=== PATIENT | female | born 1980 | race Caucasian/White ===

== ENCOUNTER 2016-09-20 15:00 | Emergency (ER) | payer OTHER ==
[~2016-09-20] VITALS: Ht 160 cm; Wt 111.0 kg
[~2016-09-20 15:00] MED LIST: ASPIR-LOW81 MG PO; ASPIRIN81 M2 PO; BENTYL10 MG PO; CALCI-CHEW500 MG PO; IRON325 M1 PO; IRON325 MG PO; LO-DOSE ASPIRIN81 M2 PO; MOBIC7.5 MG PO; MOTRIN800 MG PO; TYLENOL EXTRA500 MG PO; VITAMIN C250 MG PO; ZOFRAN ODT4 MG PO
[2016-09-20 15:55] LABS: HEMATOCRIT 36.4 % (36.0-46.0); MCH 24.2 PG (29.0-34.0); MCHC 30.8 G/DL (30.0-36.0); MCV 78.6 FL (83-99); MEAN PLAT.VOLUME 9.9 uM^3 (9.5-12.4); PLATELET COUNT 387 K/uL (156-360); RBC DIS.WIDTH-CV 15.9 % (11.8-14.6); RBC DIS.WIDTH-SD 45.2 % (39-53); RED BLOOD COUNT 4.63 M/uL (3.80-5.20); WHITE BLOOD COUNT 8.6 K/uL (4.1-10.2)
[2016-09-20 16:03] LABS: CHLORIDE 108 mEq/L (99-109); POTASSIUM 4.2 mEq/L (3.7-5.4); SODIUM 138 mEq/L (136-147)
[2016-09-20 16:05] LABS: GLUCOSE 90 mg/dL (70-99)
[2016-09-20 16:06] LABS: ANION GAP 8 MEQ/L (2-14)
[2016-09-20 16:07] LABS: CARBOXY HGB 2.5 % (0-5); METHEMOGLOBIN 0.6 % (0-1.5); MIXED VENOUS O2 SATURATION 96.5 % (65-75)
[2016-09-20 16:09] LABS: GFR ESTIMATE (CALCULATED) > 59 mL/min/
[2016-09-20 16:10] LABS: UREA NITROGEN (BUN) 14 mg/dL (9-23)
[2016-09-20] MEDS ORDERED: VENTOLIN HFA18 GM IH (17:25)
[2016-09-20 17:49] VITALS: BP 143/72
== END 2016-09-20 17:51 | disposition home or self-care (01) ==
LOC: EME 15:00
PROVIDERS: Nurse Practitioner Family
DX: T59.811A Toxic effect of smoke, accidental (unintentional), initial encounter (principal); J70.5 Respiratory conditions due to smoke inhalation; R06.00 Dyspnea, unspecified; R51 Headache; J02.9 Acute pharyngitis, unspecified; R11.0 Nausea; Z79.82 Long term (current) use of aspirin
CPT/HCPCS: 71020; 80048; 82810; 85027; 94640; 99281; 99284; J1885

== ENCOUNTER 2016-10-28 22:43 | Emergency (ER) | payer OTHER ==
[~2016-10-28] VITALS: Ht 165.1 cm; Wt 111.5 kg
[~2016-10-28 22:43] MED LIST changes: +VENTOLIN HFA18 GM IH
[2016-10-28 23:48] LABS: HEMATOCRIT 35.1 % (36.0-46.0); MCH 24.9 PG (29.0-34.0); MCHC 31.6 G/DL (30.0-36.0); MCV 78.7 FL (83-99); MEAN PLAT.VOLUME 9.6 uM^3 (9.5-12.4); PLATELET COUNT 392 K/uL (156-360); RBC DIS.WIDTH-CV 15.6 % (11.8-14.6); RBC DIS.WIDTH-SD 43.9 % (39-53); RED BLOOD COUNT 4.46 M/uL (3.80-5.20); WHITE BLOOD COUNT 8.4 K/uL (4.1-10.2)
[2016-10-29 00:09] LABS: TROP-I INTERPRETATION NEGATIVE; TROPONIN-I < 0.01 ng/mL (0.0-0.30)
[2016-10-29 00:15] LABS: CHLORIDE 109 mEq/L (99-109); POTASSIUM 3.9 mEq/L (3.7-5.4); SODIUM 138 mEq/L (136-147)
[2016-10-29 00:17] LABS: GLUCOSE 103 mg/dL (70-99)
[2016-10-29 00:18] LABS: ANION GAP 8 MEQ/L (2-14)
[2016-10-29 00:19] LABS: TOTAL BILIRUBIN 0.2 mg/dL (0.0-1.0)
[2016-10-29 00:21] LABS: ALKALINE PHOSPHATASE 48 IU/L (3-129); GFR ESTIMATE (CALCULATED) > 59 mL/min/
[2016-10-29 00:22] LABS: UREA NITROGEN (BUN) 13 mg/dL (9-23)
[2016-10-29 00:24] LABS: LIPASE 49 U/L (1.0-51.0)
[2016-10-29 03:04] LABS: TROP-I INTERPRETATION NEGATIVE; TROPONIN-I < 0.01 ng/mL (0.0-0.30)
[2016-10-29 03:48] VITALS: BP 127/64
[2016-10-30] MEDS ORDERED: FLEXERIL5 MG PO (15:58)
[2016-10-30] MEDS ORDERED: MOTRIN600 MG PO (15:58)
== END 2016-10-29 03:51 | disposition home or self-care (01) ==
LOC: EME 22:43
PROVIDERS: Emergency Medicine
DX: R07.89 Other chest pain (principal); M79.602 Pain in left arm; R11.0 Nausea; R79.1 Abnormal coagulation profile; Z79.82 Long term (current) use of aspirin
CPT/HCPCS: 71020; 71275; 80053; 83690; 84484; 85027; 85379; 93005; 99281; 99285; J1885; J2405; J7030

== ENCOUNTER 2016-10-30 12:04 | Emergency (ER) | payer OTHER ==
[~2016-10-30] VITALS: Ht 165.1 cm; Wt 109.5 kg
[2016-10-30 13:35] LABS: HEMATOCRIT 36.8 % (36.0-46.0); MCH 24.3 PG (29.0-34.0); MCHC 30.7 G/DL (30.0-36.0); MCV 79.1 FL (83-99); MEAN PLAT.VOLUME 10.2 uM^3 (9.5-12.4); PLATELET COUNT 317 K/uL (156-360); RBC DIS.WIDTH-CV 15.4 % (11.8-14.6); RBC DIS.WIDTH-SD 43.9 % (39-53); RED BLOOD COUNT 4.65 M/uL (3.80-5.20); WHITE BLOOD COUNT 6.3 K/uL (4.1-10.2)
[2016-10-30 13:43] LABS: CHLORIDE 107 mEq/L (99-109); POTASSIUM 4.1 mEq/L (3.7-5.4); SODIUM 138 mEq/L (136-147)
[2016-10-30 13:45] LABS: GLUCOSE 92 mg/dL (70-99)
[2016-10-30 13:46] LABS: ANION GAP 9 MEQ/L (2-14)
[2016-10-30 13:48] LABS: GFR ESTIMATE (CALCULATED) > 59 mL/min/
[2016-10-30 13:49] LABS: UREA NITROGEN (BUN) 10 mg/dL (9-23)
[2016-10-30 13:55] LABS: TROP-I INTERPRETATION NEGATIVE; TROPONIN-I < 0.01 ng/mL (0.0-0.30)
[2016-10-30 15:00] LABS: QUANTITATIVE HCG < 4.0 MIU/ML
[2016-10-30] MEDS ORDERED: MOTRIN600 MG PO (15:58)
[2016-10-30] MEDS ORDERED: FLEXERIL5 MG PO (15:58)
[2016-10-30 16:09] VITALS: BP 118/59
== END 2016-10-30 16:20 | disposition home or self-care (01) ==
LOC: EME 12:04
DX: R07.89 Other chest pain (principal); M54.6 Pain in thoracic spine; I10 Essential (primary) hypertension
CPT/HCPCS: 71020; 80048; 84484; 84702; 85027; 93005; 99281; 99284; J1885

== ENCOUNTER 2017-03-28 21:14 | Observation (INO) | payer OTHER ==
[~2017-03-28] VITALS: Ht 170.2 cm; Wt 113.6 kg
[~2017-03-28 21:14] MED LIST changes: +FLEXERIL5 MG PO; +MOTRIN600 MG PO
[2017-03-28 21:42] LABS: HEMATOCRIT 35.2 % (36.0-46.0); HEMOGLOBIN 11.2 G/DL (11.9-15.5); MCH 25.2 PG (29.0-34.0); MCHC 31.8 G/DL (30.0-36.0); MCV 79.3 FL (83-99); PLATELET COUNT 413 K/uL (156-360); RBC DIS.WIDTH-CV 15.8 % (11.8-14.6); RED BLOOD COUNT 4.44 M/uL (3.80-5.20); WHITE BLOOD COUNT 10.4 K/uL (4.1-10.2)
[2017-03-28 21:57] LABS: CHLORIDE 105 MEQ/L (99-109); POTASSIUM 4.2 MEQ/L (3.7-5.4); SODIUM 139 MEQ/L (136-147)
[2017-03-28 22:02] LABS: TROP-I INTERPRETATION NEGATIVE; TROPONIN-I < 0.01 ng/mL (0.0-0.30)
[2017-03-28 22:03] LABS: CREATININE 0.7 MG/DL (0.6-1.3); GFR ESTIMATE (CALCULATED) > 59 mL/min/; GLUCOSE 117 mg/dL (70-99); UREA NITROGEN (BUN) 17 mg/dL (9-23)
[2017-03-28 23:44] LABS: ALBUMIN 3.8 G/DL (3.2-4.8); ALKALINE PHOSPHATASE 40 IU/L (3-129); ALT (GPT) 21 IU/L (3-49); AST (GOT) 16 IU/L (2-34); LIPASE 72 U/L (1.0-51.0); TOTAL BILIRUBIN 0.2 MG/DL (0.0-1.0); TOTAL PROTEIN 6.8 G/DL (6.4-8.3)
[2017-03-29 03:00] VITALS: BP 130/66
[2017-03-29 07:46] VITALS: BP 111/58
[2017-03-29 10:29] LABS: TROP-I INTERPRETATION NEGATIVE; TROPONIN-I < 0.01 ng/mL (0.0-0.30)
[2017-03-29 10:31] LABS: HDL CHOLESTEROL 37 MG/DL (Desirable>=50); LDL CHOLESTEROL 83 mg/dL (Desirable<100); NON-HDL CHOLESTEROL 107 mg/dL (Desirable<160); TOTAL CHOLESTEROL 144 mg/dL (Desirable<200); TRIGLYCERIDES 122 MG/DL (Normal: <150)
[2017-03-29 12:39] VITALS: BP 137/67
== END 2017-03-29 17:33 | disposition home or self-care (01) ==
LOC: EME 21:14 → EDOF 03-29 01:32 → ENRESERV 03-29 01:34 → 5WEST 03-29 03:02
PROVIDERS: Internal Medicine; Physician Assistant Medical
DX: R07.89 Other chest pain (principal); R55 Syncope and collapse; Z82.49 Family history of ischemic heart disease and other diseases of the circulatory system; E66.01 Morbid (severe) obesity due to excess calories; Z68.39 Body mass index [BMI] 39.0-39.9, adult; D72.829 Elevated white blood cell count, unspecified; R74.8 Abnormal levels of other serum enzymes; G43.909 Migraine, unspecified, not intractable, without status migrainosus; F41.9 Anxiety disorder, unspecified
CPT/HCPCS: 71046; 71275; 80048; 80061; 80076; 83690; 84484; 85027; 87502; 93005; 99281; 99285; G0378; J1200; J1650; J1885; J2270; J7030

== ENCOUNTER 2017-03-30 22:24 | Emergency (ER) | payer OTHER ==
[~2017-03-30] VITALS: Ht 170.2 cm; Wt 114.5 kg
[2017-03-30 23:08] LABS: BASOPHIL (%) 0.5 % (0-1); BASOPHIL COUNT 0.1 K/uL (0-0.1); EOSINOPHIL (%) 5.1 % (0-5); EOSINOPHIL COUNT 0.5 K/uL (0-0.3); HEMOGLOBIN 11.4 G/DL (11.9-15.5); IMMATURE GRANULOCYTE (%) 0.5 % (0.0-0.7); LYMPHOCYTE (%) 26.6 % (15-42); LYMPHOCYTE COUNT 2.5 K/uL (1.0-2.8); MCH 25.5 PG (29.0-34.0); MCHC 32.6 G/DL (30.0-36.0); MCV 78.3 FL (83-99); MONOCYTE (%) 7.5 % (3-12); MONOCYTE COUNT 0.7 K/uL (0-0.8); NEUTROPHIL (%) 59.8 % (45-76); NEUTROPHIL COUNT 5.6 K/uL (1.8-6.4); PLATELET COUNT 390 K/uL (156-360); RBC DIS.WIDTH-CV 15.9 % (11.8-14.6); RBC DIS.WIDTH-SD 45.1 % (39-53); RED BLOOD COUNT 4.47 M/uL (3.80-5.20); WHITE BLOOD COUNT 9.3 K/uL (4.1-10.2)
[2017-03-30 23:20] LABS: CHLORIDE 108 mEq/L (99-109); SODIUM 140 mEq/L (136-147)
[2017-03-30 23:21] LABS: GLUCOSE 113 mg/dL (70-99)
[2017-03-30 23:25] LABS: CREATININE 0.8 mg/dL (0.6-1.3); GFR ESTIMATE (CALCULATED) > 59 mL/min/
[2017-03-30 23:26] LABS: UREA NITROGEN (BUN) 15 mg/dL (9-23)
[2017-03-30 23:29] LABS: TROP-I INTERPRETATION NEGATIVE; TROPONIN-I < 0.01 ng/mL (0.0-0.30)
[2017-03-31 02:10] LABS: TROP-I INTERPRETATION NEGATIVE; TROPONIN-I < 0.01 ng/mL (0.0-0.30)
[2017-03-31 03:21] VITALS: BP 142/67
== END 2017-03-31 03:22 | disposition home or self-care (01) ==
LOC: EME 22:24
PROVIDERS: Emergency Medicine
DX: R07.9 Chest pain, unspecified (principal); I10 Essential (primary) hypertension
CPT/HCPCS: 71046; 80048; 84484; 85025; 85379; 93005; 94640; 99281; 99285; J2405; J7030

== ENCOUNTER 2017-04-19 07:08 | Emergency (ER) | payer OTHER ==
[~2017-04-19] VITALS: Ht 157.5 cm; Wt 74.8 kg
[2017-04-19 07:54] LABS: BASOPHIL (%) 0.7 % (0-1); BASOPHIL COUNT 0.1 K/uL (0-0.1); EOSINOPHIL (%) 4.5 % (0-5); EOSINOPHIL COUNT 0.3 K/uL (0-0.3); HEMOGLOBIN 11.2 G/DL (11.9-15.5); IMMATURE GRANULOCYTE (%) 0.3 % (0.0-0.7); LYMPHOCYTE (%) 24.1 % (15-42); LYMPHOCYTE COUNT 1.7 K/uL (1.0-2.8); MCH 25.2 PG (29.0-34.0); MCV 78.8 FL (83-99); MONOCYTE (%) 6.7 % (3-12); MONOCYTE COUNT 0.5 K/uL (0-0.8); NEUTROPHIL (%) 63.7 % (45-76); NEUTROPHIL COUNT 4.4 K/uL (1.8-6.4); PLATELET COUNT 342 K/uL (156-360); RBC DIS.WIDTH-CV 15.7 % (11.8-14.6); RED BLOOD COUNT 4.44 M/uL (3.80-5.20); WHITE BLOOD COUNT 6.9 K/uL (4.1-10.2)
[2017-04-19 08:00] LABS: INTER. NORMALIZED RATIO 1.1
[2017-04-19 08:02] LABS: PTT 26.4 SEC (25-37)
[2017-04-19 08:19] LABS: TROP-I INTERPRETATION NEGATIVE; TROPONIN-I < 0.01 ng/mL (0.0-0.30)
[2017-04-19 08:32] LABS: CHLORIDE 106 MEQ/L (99-109); CREATININE 0.7 MG/DL (0.6-1.3); GFR ESTIMATE (CALCULATED) > 59 mL/min/; GLUCOSE 115 mg/dL (70-99); POTASSIUM 4.2 MEQ/L (3.7-5.4); SODIUM 136 MEQ/L (136-147); UREA NITROGEN (BUN) 19 mg/dL (9-23)
[2017-04-19 10:33] LABS: TROP-I INTERPRETATION NEGATIVE; TROPONIN-I < 0.01 ng/mL (0.0-0.30)
[2017-04-19 11:25] VITALS: BP 115/88
== END 2017-04-19 11:26 | disposition home or self-care (01) ==
LOC: EME 07:08
PROVIDERS: Emergency Medicine
DX: R07.89 Other chest pain (principal); I10 Essential (primary) hypertension; D64.9 Anemia, unspecified
CPT/HCPCS: 71045; 80048; 84484; 85025; 85610; 85730; 99281; 99284

== ENCOUNTER 2017-04-20 21:12 | Emergency (ER) | payer OTHER ==
[~2017-04-20] VITALS: Ht 167.6 cm; Wt 112.3 kg
[2017-04-20 22:23] LABS: HEMATOCRIT 36.7 % (36.0-46.0); HEMOGLOBIN 11.7 G/DL (11.9-15.5); MCH 25.1 PG (29.0-34.0); MCHC 31.9 G/DL (30.0-36.0); MCV 78.6 FL (83-99); PLATELET COUNT 433 K/uL (156-360); RBC DIS.WIDTH-CV 15.9 % (11.8-14.6); RBC DIS.WIDTH-SD 45.1 % (39-53); RED BLOOD COUNT 4.67 M/uL (3.80-5.20); WHITE BLOOD COUNT 8.8 K/uL (4.1-10.2)
[2017-04-20 22:32] LABS: CHLORIDE 107 mEq/L (99-109); POTASSIUM 3.9 mEq/L (3.7-5.4); SODIUM 139 mEq/L (136-147)
[2017-04-20 22:34] LABS: GLUCOSE 95 mg/dL (70-99)
[2017-04-20 22:38] LABS: CREATININE 0.7 mg/dL (0.6-1.3); GFR ESTIMATE (CALCULATED) > 59 mL/min/
[2017-04-20 22:39] LABS: UREA NITROGEN (BUN) 17 mg/dL (9-23)
[2017-04-20 22:44] LABS: TROP-I INTERPRETATION NEGATIVE; TROPONIN-I < 0.01 ng/mL (0.0-0.30)
[2017-04-20 23:51] LABS: QUANTITATIVE HCG < 4.0 MIU/ML
[2017-04-21 01:39] LABS: TROP-I INTERPRETATION NEGATIVE; TROPONIN-I < 0.01 ng/mL (0.0-0.30)
[2017-04-21 01:57] VITALS: BP 112/61
== END 2017-04-21 02:01 | disposition home or self-care (01) ==
LOC: EME 21:12
PROVIDERS: Physician Assistant Medical
DX: R07.9 Chest pain, unspecified (principal); M79.602 Pain in left arm; R55 Syncope and collapse; M79.89 Other specified soft tissue disorders; R06.02 Shortness of breath; J98.11 Atelectasis; K44.9 Diaphragmatic hernia without obstruction or gangrene; Z82.49 Family history of ischemic heart disease and other diseases of the circulatory system
CPT/HCPCS: 71046; 71275; 80048; 84484; 84702; 85027; 93005; 99281; 99284; J2270; J2405; J7030

== ENCOUNTER 2017-04-27 08:12 | Emergency (ER) | payer OTHER ==
[~2017-04-27] VITALS: Ht 165.1 cm; Wt 106.9 kg
[2017-04-27 08:50] LABS: HEMOGLOBIN 11.7 G/DL (11.9-15.5); MCH 25.6 PG (29.0-34.0); MCHC 32.5 G/DL (30.0-36.0); MCV 78.8 FL (83-99); PLATELET COUNT 364 K/uL (156-360); RBC DIS.WIDTH-CV 15.8 % (11.8-14.6); RBC DIS.WIDTH-SD 44.8 % (39-53); RED BLOOD COUNT 4.57 M/uL (3.80-5.20); WHITE BLOOD COUNT 6.6 K/uL (4.1-10.2)
[2017-04-27 08:52] LABS: ALBUMIN 3.9 g/dL (3.2-4.8); CHLORIDE 107 mEq/L (99-109); POTASSIUM 4.2 mEq/L (3.7-5.4); SODIUM 139 mEq/L (136-147)
[2017-04-27 08:54] LABS: GLUCOSE 100 mg/dL (70-99)
[2017-04-27 08:55] LABS: TOTAL PROTEIN 7.1 g/dL (6.4-8.3)
[2017-04-27 08:56] LABS: TOTAL BILIRUBIN 0.4 mg/dL (0.0-1.0)
[2017-04-27 08:58] LABS: ALKALINE PHOSPHATASE 47 IU/L (3-129); CREATININE 0.7 mg/dL (0.6-1.3); GFR ESTIMATE (CALCULATED) > 59 mL/min/
[2017-04-27 08:59] LABS: UREA NITROGEN (BUN) 12 mg/dL (9-23)
[2017-04-27 09:00] LABS: AST (GOT) 18 IU/L (2-34)
[2017-04-27 09:01] LABS: ALT (GPT) 23 IU/L (3-49)
[2017-04-27 09:03] LABS: TROP-I INTERPRETATION NEGATIVE; TROPONIN-I < 0.01 ng/mL (0.0-0.30)
[2017-04-27 11:55] LABS: TROP-I INTERPRETATION NEGATIVE; TROPONIN-I < 0.01 ng/mL (0.0-0.30)
[2017-04-27 12:16] VITALS: BP 111/69
== END 2017-04-27 12:16 | disposition home or self-care (01) ==
LOC: EME 08:12
PROVIDERS: Nurse Practitioner Family
DX: R07.2 Precordial pain (principal); M79.602 Pain in left arm
CPT/HCPCS: 71046; 80053; 84484; 85027; 93005; 99281; 99284; J1885

== ENCOUNTER 2017-05-02 22:20 | Emergency (ER) | payer OTHER ==
[~2017-05-02] VITALS: Ht 165.1 cm; Wt 111.0 kg
[2017-05-02 23:06] LABS: HEMATOCRIT 37.1 % (36.0-46.0); HEMOGLOBIN 12.1 G/DL (11.9-15.5); MCH 25.5 PG (29.0-34.0); MCHC 32.6 G/DL (30.0-36.0); MCV 78.3 FL (83-99); PLATELET COUNT 392 K/uL (156-360); RBC DIS.WIDTH-CV 15.8 % (11.8-14.6); RBC DIS.WIDTH-SD 45.1 % (39-53); RED BLOOD COUNT 4.74 M/uL (3.80-5.20); WHITE BLOOD COUNT 8.8 K/uL (4.1-10.2)
[2017-05-02 23:15] LABS: CHLORIDE 107 mEq/L (99-109); SODIUM 139 mEq/L (136-147)
[2017-05-02 23:17] LABS: GLUCOSE 103 mg/dL (70-99)
[2017-05-02 23:21] LABS: CREATININE 0.8 mg/dL (0.6-1.3); GFR ESTIMATE (CALCULATED) > 59 mL/min/; UREA NITROGEN (BUN) 13 mg/dL (9-23)
[2017-05-02 23:27] LABS: TROP-I INTERPRETATION NEGATIVE; TROPONIN-I < 0.01 ng/mL (0.0-0.30)
[2017-05-03 01:55] LABS: TROP-I INTERPRETATION NEGATIVE; TROPONIN-I < 0.01 ng/mL (0.0-0.30)
[2017-05-03 02:06] VITALS: BP 130/52
== END 2017-05-03 02:26 | disposition home or self-care (01) ==
LOC: EME 22:20
PROVIDERS: Emergency Medicine
DX: R07.9 Chest pain, unspecified (principal); R06.02 Shortness of breath; R11.2 Nausea with vomiting, unspecified; M79.89 Other specified soft tissue disorders
CPT/HCPCS: 71046; 80048; 84484; 85027; 93005; 99281; 99285

== ENCOUNTER 2017-05-10 06:11 | Emergency (ER) | payer OTHER ==
[~2017-05-10] VITALS: Ht 165.1 cm; Wt 114.7 kg
[2017-05-10 07:04] LABS: BASOPHIL (%) 0.6 % (0-1); EOSINOPHIL (%) 5.5 % (0-5); EOSINOPHIL COUNT 0.4 K/uL (0-0.3); HEMATOCRIT 32.3 % (36.0-46.0); HEMOGLOBIN 10.4 G/DL (11.9-15.5); IMMATURE GRANULOCYTE (%) 0.3 % (0.0-0.7); LYMPHOCYTE (%) 24.9 % (15-42); LYMPHOCYTE COUNT 1.6 K/uL (1.0-2.8); MCH 25.4 PG (29.0-34.0); MCHC 32.2 G/DL (30.0-36.0); MONOCYTE COUNT 0.5 K/uL (0-0.8); NEUTROPHIL (%) 60.7 % (45-76); PLATELET COUNT 352 K/uL (156-360); RBC DIS.WIDTH-CV 15.7 % (11.8-14.6); RBC DIS.WIDTH-SD 44.9 % (39-53); RED BLOOD COUNT 4.09 M/uL (3.80-5.20); WHITE BLOOD COUNT 6.6 K/uL (4.1-10.2)
[2017-05-10 07:24] LABS: PTT 26.3 SEC (25-37)
[2017-05-10 07:37] LABS: TROP-I INTERPRETATION NEGATIVE; TROPONIN-I < 0.01 ng/mL (0.0-0.30)
[2017-05-10 08:09] LABS: CHLORIDE 109 MEQ/L (99-109); CREATININE 0.6 MG/DL (0.6-1.3); GFR ESTIMATE (CALCULATED) > 59 mL/min/; GLUCOSE 121 mg/dL (70-99); POTASSIUM 4.1 MEQ/L (3.7-5.4); SODIUM 139 MEQ/L (136-147); UREA NITROGEN (BUN) 17 mg/dL (9-23)
[2017-05-10 10:41] LABS: TROP-I INTERPRETATION NEGATIVE; TROPONIN-I < 0.01 ng/mL (0.0-0.30)
[2017-05-10 12:09] VITALS: BP 117/60
== END 2017-05-10 12:19 | disposition home or self-care (01) ==
LOC: EME 06:11
PROVIDERS: Emergency Medicine
DX: R07.89 Other chest pain (principal); I10 Essential (primary) hypertension; D64.9 Anemia, unspecified; Z82.49 Family history of ischemic heart disease and other diseases of the circulatory system
CPT/HCPCS: 71045; 71275; 80048; 84484; 85025; 85379; 85610; 85730; 93005; 93970; 99281; 99285; J7030

== ENCOUNTER 2017-07-07 10:28 | Emergency (ER) | payer OTHER ==
[~2017-07-07] VITALS: Ht 165.1 cm; Wt 110.0 kg
[2017-07-07] MEDS ORDERED: ZOFRAN ODT4 MG PO (14:00)
[2017-07-07] MEDS ORDERED: BENTYL20 MG PO (14:00)
[2017-07-07] MEDS ORDERED: GUAIFENESIN600 M1 PO (14:00)
[2017-07-07] MEDS ORDERED: FLONASE16 G1 BOTH NARES (14:00)
[2017-07-07] MEDS ORDERED: TESSALON200 MG PO (14:00)
[2017-07-07 14:12] VITALS: BP 124/81
== END 2017-07-07 14:12 | disposition home or self-care (01) ==
LOC: EME 10:28
PROVIDERS: Nurse Practitioner Family
DX: J04.0 Acute laryngitis (principal); J20.8 Acute bronchitis due to other specified organisms; J30.2 Other seasonal allergic rhinitis; I10 Essential (primary) hypertension; D64.9 Anemia, unspecified
CPT/HCPCS: 71046; 87502; 87651 90; 99281; 99284; J1885

== ENCOUNTER 2017-08-08 22:29 | Observation (INO) | payer OTHER ==
[~2017-08-08] VITALS: Ht 165.1 cm; Wt 110.3 kg
[~2017-08-08 22:29] MED LIST changes: +BENTYL20 MG PO; +FLONASE16 G1 BOTH NARES; +GUAIFENESIN600 M1 PO; +TESSALON200 MG PO
[2017-08-08 23:35] LABS: HEMATOCRIT 31.5 % (36.0-46.0); HEMOGLOBIN 10.1 G/DL (11.9-15.5); MCH 24.8 PG (29.0-34.0); MCHC 32.1 G/DL (30.0-36.0); MCV 77.2 FL (83-99); PLATELET COUNT 365 K/uL (156-360); RBC DIS.WIDTH-CV 15.3 % (11.8-14.6); RBC DIS.WIDTH-SD 42.7 % (39-53); RED BLOOD COUNT 4.08 M/uL (3.80-5.20); WHITE BLOOD COUNT 5.8 K/uL (4.1-10.2)
[2017-08-08 23:44] LABS: ALBUMIN 3.7 g/dL (3.2-4.8)
[2017-08-08 23:45] LABS: CHLORIDE 107 mEq/L (99-109); POTASSIUM 3.8 mEq/L (3.7-5.4); SODIUM 137 mEq/L (136-147)
[2017-08-08 23:47] LABS: GLUCOSE 104 mg/dL (70-99); TOTAL PROTEIN 6.5 g/dL (6.4-8.3)
[2017-08-08 23:49] LABS: TOTAL BILIRUBIN 0.2 mg/dL (0.0-1.0)
[2017-08-08 23:50] LABS: ALKALINE PHOSPHATASE 42 IU/L (3-129)
[2017-08-08 23:51] LABS: CREATININE 0.9 mg/dL (0.6-1.3); GFR ESTIMATE (CALCULATED) > 59 mL/min/
[2017-08-08 23:52] LABS: AST (GOT) 21 IU/L (2-34); UREA NITROGEN (BUN) 14 mg/dL (9-23)
[2017-08-08 23:53] LABS: ALT (GPT) 24 IU/L (3-49)
[2017-08-08 23:56] LABS: TROP-I INTERPRETATION NEGATIVE; TROPONIN-I < 0.01 ng/mL (0.0-0.30)
[2017-08-09 02:23] LABS: TROP-I INTERPRETATION NEGATIVE; TROPONIN-I 0.02 ng/mL (0.0-0.30)
[2017-08-09 04:37] VITALS: BP 122/57
[2017-08-09 07:05] VITALS: BP 110/51
[2017-08-09 07:46] LABS: HEMATOCRIT 33.1 % (36.0-46.0); HEMOGLOBIN 10.3 G/DL (11.9-15.5); MCHC 31.1 G/DL (30.0-36.0); MCV 77.2 FL (83-99); PLATELET COUNT 342 K/uL (156-360); RBC DIS.WIDTH-CV 15.2 % (11.8-14.6); RBC DIS.WIDTH-SD 42.5 % (39-53); RED BLOOD COUNT 4.29 M/uL (3.80-5.20); WHITE BLOOD COUNT 5.4 K/uL (4.1-10.2)
[2017-08-09 08:04] LABS: TROP-I INTERPRETATION NEGATIVE; TROPONIN-I < 0.01 ng/mL (0.0-0.30)
[2017-08-09 08:08] LABS: CHLORIDE 107 MEQ/L (99-109); CREATININE 0.7 MG/DL (0.6-1.3); GFR ESTIMATE (CALCULATED) > 59 mL/min/; GLUCOSE 119 mg/dL (70-99); HDL CHOLESTEROL 31 MG/DL (Desirable>=50); LDL CHOLESTEROL 91 mg/dL (Desirable<100); NON-HDL CHOLESTEROL 115 mg/dL (Desirable<160); POTASSIUM 4.2 MEQ/L (3.7-5.4); SODIUM 141 MEQ/L (136-147); TOTAL CHOLESTEROL 146 mg/dL (Desirable<200); TRIGLYCERIDES 118 MG/DL (Normal: <150); UREA NITROGEN (BUN) 14 mg/dL (9-23)
[2017-08-09] MEDS ORDERED: ASPIR-LOW81 MG PO (09:38)
== END 2017-08-09 10:50 | disposition home or self-care (01) ==
LOC: TRA 22:29 → EME 22:29 → EDOF 08-09 03:20 → ENRESERV 08-09 03:21 → 4SOUTH 08-09 04:27
PROVIDERS: Internal Medicine; Physician Assistant
DX: R07.9 Chest pain, unspecified (principal); E66.9 Obesity, unspecified; G43.909 Migraine, unspecified, not intractable, without status migrainosus; Z82.49 Family history of ischemic heart disease and other diseases of the circulatory system
CPT/HCPCS: 71045; 80048; 80053; 80061; 84484; 85027; 93005; 99281; 99285; G0378; J1644; J2405